=== PATIENT | female | born 1960 | race Caucasian/White ===

== ENCOUNTER 2021-03-23 11:59 | Day surgery (SDC) | payer OTHER ==
[~2021-03-23] VITALS: Ht 167.6 cm; Wt 120.7 kg
[~2021-03-23 11:59] MED LIST: FURO20TA2 PO; GABA-283 PO; LIDOCAINE 1% MDV 20ML VIAL SQ PRN; LR 1,000 ML IV ONE; META1TAB22 PO; NORT25CA2 PO; NORT50CA PO; NUCY50TA19 PO; OMEP-221 PO; SUCR1TAB56 PO; VENL150C43 PO; [UNRECOGNIZED DRUG - CODE] PO
[2021-03-23] MEDS ORDERED: SUCCINYLCHOLINE 100 MG/5 ML SYRINGE (J0330) As Ordered ONE (13:39)
[2021-03-23] MEDS ORDERED: fentaNYL 100 MCG/2 ML INJECTION (J3010) As Ordered ONE ×2 (13:39→15:05)
[2021-03-23] MEDS ORDERED: LIDOCAINE W/EPINEPHRINE 1% 20ML VIAL As Ordered ONE (13:39)
[2021-03-23] MEDS ORDERED: propofoL 200 MG/20 ML VIAL As Ordered ONE (13:39)
[2021-03-23] MEDS ORDERED: dexameTHASONE 4 MG/ML 1ML VIAL (J1100 PER 1MG) As Ordered ONE (13:39)
[2021-03-23] MEDS ORDERED: LIDOCAINE 2% 100MG/5ML SDV (FOR ANES.) As Ordered ONE (13:39)
[2021-03-23] MEDS ORDERED: ONDANSETRON 4MG/2ML VIAL As Ordered ONE (13:39)
[2021-03-23] MEDS ORDERED: METHYLENE BLUE 0.5% (5MG/ML) 10 ML AMP (PROVAYBLUE) As Ordered ONE (13:39)
[2021-03-23] MEDS ORDERED: EPINEPHrine 1MG/ML INJ 30ML MD-VIAL As Ordered ONE (13:40)
[2021-03-23] MEDS ORDERED: MIDAZOLAM INJ 2MG/2ML VIAL (J2250 PER 1MG) As Ordered ONE (13:42)
[2021-03-23] MEDS ORDERED: ROCURONIUM BROMIDE 50 MG/5 ML VIAL As Ordered ONE (13:44)
[2021-03-23] MEDS: fentaNYL 100 MCG/2 ML INJECTION (J3010) IV PRN ×7 (15:05→16:14)
[2021-03-23] MEDS ORDERED: LR 1,000 ML IV SCH ×2 (15:25→16:00)
[2021-03-23] MEDS ORDERED: ALBUTEROL SULFATE 2.5 MG/0.5 ML INH NEB SOLN INH ONE (15:25)
[2021-03-23] MEDS ORDERED: METOCLOPRAMIDE INJ 10MG/2ML VIAL (J2765 PER 1) IV PRN (15:25)
[2021-03-23] MEDS ORDERED: ONDANSETRON 4MG/2ML VIAL IV PRN (15:25)
[2021-03-23] MEDS ORDERED: ACETAMINOPH W/CODEINE #3 TAB UD PO PRN (15:30)
[2021-03-23] MEDS: PERCOCET 5MG/325MG TAB PO PRN ×2 (15:44→16:14)
[2021-03-23] MEDS ORDERED: MORPHINE 2 MG/ML 1ML VIAL (J2270) IV PRN (16:00)
--- NOTE | 2021-03-23 16:44 | ECGEPIP ---
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 Electronically Signed on 03-23-2021 16:44:32 EDT by Yemi Esquivel
[2021-03-23 16:45] VITALS: BP 108/51
--- NOTE | 2021-03-24 09:52 | RO ---
OPERATIVE NOTE DATE OF OPERATION: 03/23/2021 PREOPERATIVE DIAGNOSIS: Chronic left maxillary sinusitis. POSTOPERATIVE DIAGNOSIS: Chronic left maxillary sinusitis. PROCEDURE: Left intranasal antrostomy. FINDINGS: There was fungal concretion within the left maxillary sinus which I removed using irrigation and suction. 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 DESCRIPTION OF PROCEDURE: Under general anesthesia with the patient intubated, the patient was draped in the usual manner. I used pledgets of Adrenalin 1:1000. I infiltrated it with Lidocaine with Epinephrine. I opened at the maxillary sinus on that left side. The above findings were seen. I washed the sinus out in the large opening. The sinus mucosa was edematous and red. The patient tolerated the procedure well. Less than 50 mL estimated blood loss. The patient was extubated and transferred to recovery room in excellent condition.
== END 2021-03-23 16:56 | disposition home or self-care (01) ==
LOC: M SDC 11:59 → EDUNIT# 14:00 → M SDC 16:56
PROVIDERS: ATTEND Otolaryngology
DX: J32.0 Chronic maxillary sinusitis (principal); F43.10 Post-traumatic stress disorder, unspecified; R60.0 Localized edema; K44.9 Diaphragmatic hernia without obstruction or gangrene; M79.7 Fibromyalgia; F41.9 Anxiety disorder, unspecified; F32.9 Major depressive disorder, single episode, unspecified; G43.909 Migraine, unspecified, not intractable, without status migrainosus; Z87.891 Personal history of nicotine dependence; Z79.899 Other long term (current) drug therapy
CPT/HCPCS: 31256; 87070; 87075; 87076; 87077; 87186; 87205; 87798; 88305; 93005; J0330; J1100; J2250; J2405; J3010; Q9968